=== PATIENT | female | born 1960 | race Hispanic/Latino ===

== ENCOUNTER 2018-07-19 11:10 | Emergency (ER) | payer OTHER ==
[2018-07-19 11:10] VITALS: BMI 28.1
[2018-07-19 11:13] VITALS: BP 134/76; RESP 20; TEMP 98.4; O2SAT 99
--- NOTE | 2018-07-19 11:31 | ED PDOC ---
HPI: General Adult Time Seen by Provider: 07/19/18 11:22 Chief Complaint (Nursing): Trauma Chief Complaint (Provider): fall History Per: Patient Additional Complaint(s): 58 her old female presents with left hip pain and left elbow pain status post slip and fall. Patient was at [facility] when she slipped on grapes her on the floor. Patient did not sustain head injury or loss of consciousness. Fall occurred this morning and she was brought here by ambulance. Has been able to walk since time of fall. PMD: Dr. Enciso, [place] Past Medical History Reviewed: Historical Data, Nursing Documentation, Vital Signs Vital Signs: Last Vital Signs Temp 98.4 F 07/19/18 11:16 Pulse 53 L 07/19/18 11:16 Resp 20 07/19/18 11:16 BP 134/76 07/19/18 11:16 Pulse Ox 99 07/19/18 11:42 - Medical History PMH: Anemia, Hypothyroidism - Surgical History Other surgeries: hysterectomy - Family History Family History: States: No Known Family Hx - Living Arrangements Living Arrangements: With Family - Social History Current smoker - smoking cessation education provided: No Alcohol: None Drugs: Denies - Home Medications Home Medications: Ambulatory Orders Medication Instructions Recorded Levothyroxine Sodium 0.075 mg PO DAILY 05/24/14 Cyclobenzaprine [Cyclobenzaprine 10 mg PO TID PRN #20 tab 07/19/18 HCl] Naproxen [Naprosyn] 500 mg PO BID #20 tab 07/19/18 - Allergies Allergies/Adverse Reactions: Allergies Allergy/AdvReac Type Severity Reaction Status Date / Time No Known Allergies Allergy Verified 07/19/18 11:26 Review of Systems ROS Statement: Except As Marked, All Systems Reviewed And Found Negative Musculoskeletal: Positive for: Other (Left hip pain, left elbow pain status post trip and fall) Neurological: Positive for: Other (No head injury or loss of consciousness) Physical Exam - Reviewed Nursing Documentation Reviewed: Yes Vital Signs Reviewed: Yes - Physical Exam Appears: Positive for: Well, Non-toxic, No Acute Distress Skin: Positive for: Normal Color. Negative for: Rash Eye Exam: Positive for: Normal appearance Cardiovascular/Chest: Positive for: Regular Rate, Rhythm Respiratory: Positive for: Normal Breath Sounds Back: Negative for: L CVA Tenderness, R CVA Tenderness, Vertebral Tenderness Extremity: Positive for: Other (Tenderness to left lateral hip with full range of motion, tenderness and superficial abrasion to left elbow region with full range of motion) Neurologic/Psych: Positive for: Alert, Oriented - ECG O2 Sat by Pulse Oximetry: 99 Pulse Ox Interpretation: Normal - Other Rad Left elbow x-ray X-Ray: Interpreted by Me, Viewed By Me X-Ray Interpretation: no fx, no dis Left hip and pelvis x-ray X-Ray: Interpreted by Me, Viewed By Me X-Ray Interpretation: no fx, no dis Medical Decision Making Medical Decision Makin-year-old female with left elbow and left hip pain status post trip and fall Plan: Pain meds declined X-ray left elbow X-ray left hip and pelvis Rx given for naprosyn and flexeril for pain relief. 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 Procedures - Splinting Location: Left arm Pre-Made Type: sling Pre-Proc Neuro Vasc Exam: normal Post-Proc Neuro Vasc Exam: normal Disposition - Clinical Impression Clinical Impression: Elbow sprain, Hip strain - Patient ED Disposition Is Patient to be Admitted: No Counseled Patient/Family Regarding: Studies Performed, Diagnosis, Need For Followup, Rx Given - Disposition Referrals: Maxx Quintana III, MD [Staff Provider] - Disposition: Routine/Home Disposition Time: 12:28 Condition: STABLE Additional Instructions: Rest and avoid heavy lifting. Take rx meds as directed as needed for pain. Follow up with orthopedist or with primary care doctor in 2-3 days. Prescriptions: Cyclobenzaprine [Cyclobenzaprine HCl] 10 mg PO TID PRN #20 tab PRN Reason: Muscle Spasm Naproxen [Naprosyn] 500 mg PO BID #20 tab Instructions: Elbow Sprain (DC), Lower Extremity Muscle Strain Forms: [employer] (Filipino)
[2018-07-19 12:42] VITALS: PULSE 64
--- NOTE | 2018-07-19 13:25 | RAD ---
PROCEDURE: Left Hip X-ray Radiographs. HISTORY: trauma COMPARISON: None. FINDINGS: BONES: Normal. No fracture. JOINTS: Normal. SOFT TISSUES: Normal. OTHER FINDINGS: None. IMPRESSION: Normal left hip radiographs.
--- NOTE | 2018-07-19 13:26 | RAD ---
Date of service: 07/19/2018 PROCEDURE: Radiographs of the left elbow. HISTORY: trauma COMPARISON: No prior. FINDINGS: BONES: Normal. No fracture. JOINTS: Normal. No osteoarthritis. SOFT TISSUES: Normal. JOINT EFFUSION: None. OTHER FINDINGS: None IMPRESSION: Unremarkable radiographs of the left elbow.
== END 2018-07-19 12:41 | disposition home or self-care (01) ==
LOC: H.ER 11:10
DX: S73.102A Unspecified sprain of left hip, initial encounter (principal); W01.0XXA Fall on same level from slipping, tripping and stumbling without subsequent striking against object, initial encounter; Y92.89 Other specified places as the place of occurrence of the external cause; E03.9 Hypothyroidism, unspecified; Z90.710 Acquired absence of both cervix and uterus